=== PATIENT | male | born 1945 | race Hispanic/Latino ===

== ENCOUNTER 2019-02-15 08:18 | Day surgery (SDC) | payer OTHER ==
[~2019-02-15] VITALS: Ht 157.5 cm; Wt 77.1 kg
[~2019-02-15 08:18] MED LIST: ABAC300T9 PO; AMLO2.5T4 PO; CARV12.511 PO; CHOL100044 PO; CLON0.1T PO; CYAN-35 PO; FOLI1TAB15 PO; FURO40TA5 PO; HYDR-4154 PO; ISOS30TA6 PO; LAMI100T4 PO; MINO2.5T3 PO; MULT1CAP32 PO; PIOG30TA70 PO; RALT400T PO; SODIUM CHLORIDE 0.9% 1000ML 1,000 ML IV ONE; TAMS-1 PO
[2019-02-15 09:22] VITALS: BP 210/80
--- NOTE | 2019-02-15 12:11 | NUR ---
NURSING PT TO BE CANCELLED TO DUE TO POOR PREP AND NEEDS HEART CLEARANCE. PT AWARE HE IS TO SEE [employer] TE[employer] BEFORE SCHEDULING PROC Addendum: 02/15/19 at 1212 by MALIK VERAS RN Amended: Links added.
== END 2019-02-15 12:15 | disposition home or self-care (01) ==
LOC: ENDO 08:18 → DAH 08:18 → ENDO 12:15
PROVIDERS: ATTEND Internal Medicine
DX: D64.9 Anemia, unspecified (principal); Z53.9 Procedure and treatment not carried out, unspecified reason; Z86.010 Personal history of colon polyps
CPT/HCPCS: 82948; 93005; J7030